=== PATIENT | female | born 1960 | race Caucasian/White ===

== ENCOUNTER 2022-11-18 14:56 | Emergency (ER) | payer SELFPAY ==
[~2022-11-18] VITALS: Ht 162.6 cm; Wt 67.7 kg
[2022-11-18 15:15] VITALS: TEMP 98.3
[2022-11-18] MEDS ORDERED: PROP20TA18 PO (15:20)
[2022-11-18] MEDS ORDERED: SERT-158 PO (15:20)
[2022-11-18] MEDS ORDERED: HYDR25TA2 PO (15:20)
[2022-11-18] MEDS ORDERED: ATOR20TA PO (15:20)
[2022-11-18] MEDS ORDERED: BACL10TA PO (15:20)
[2022-11-18] MEDS ORDERED: CYCLOBENZAPRINE HCL 10 MG TABLET PO ONE (16:15)
[2022-11-18] MEDS ORDERED: LIDOCAINE 5% TRANSDERMAL PATCH TD ONE (16:15)
[2022-11-18] MEDS ORDERED: KETOROLAC TROMETHAMINE 30 MG/ML VIAL IM ONE (16:15)
[2022-11-18] MEDS ORDERED: LIDO700A15 TP (18:09)
[2022-11-18] MEDS ORDERED: IBUP-1492 PO (18:09)
[2022-11-18 18:45] VITALS: BP 133/80; PULSE 70; RESP 18
== END 2022-11-18 18:45 | disposition home or self-care (01) ==
LOC: EMS 15:00
DX: M54.50 Low back pain, unspecified (principal); E78.00 Pure hypercholesterolemia, unspecified; F32.A Depression, unspecified; I10 Essential (primary) hypertension
CPT/HCPCS: 99283; 96372; J1885